=== PATIENT | female | born 1950 | race Caucasian/White ===

== ENCOUNTER → 2017-12-02 | Outpatient (CLI) | payer MEDICARE ==
[~2017-12-02] MED LIST: ALEN70TA3 PO; ASPI-496 PO; CARV-39 PO; DIGO125T PO; VALS80TA3 PO
[2017-12-02 09:53] LABS: ALANINE AMINOTRANSFERASE 28 U/L (12-78); ALBUMIN 3.8 g/dL (3.4-5.0); ANION GAP 7 mmol/L (5-15); CALCIUM 8.8 mg/dL (8.5-10.1); CHLORIDE 110 mmol/L (98-107)
[2017-12-02 09:55] LABS: ALKALINE PHOSPHATASE 37 U/L (45-117); BILIRUBIN,TOTAL 0.6 mg/dL (0.2-1.0); TOTAL PROTEIN 6.8 g/dL (6.4-8.2)
== END | disposition home or self-care (01) ==
LOC: STAR 08:42
PROVIDERS: ATTEND Internal Medicine
DX: Z01.818 Encounter for other preprocedural examination (principal); Z80.0 Family history of malignant neoplasm of digestive organs
CPT/HCPCS: 36415; 80053; 93005

== ENCOUNTER 2017-12-07 08:15 | Day surgery (SDC) | payer MEDICARE ==
[~2017-12-07] VITALS: Ht 170.2 cm; Wt 56.9 kg
[2017-12-07] MEDS ORDERED: LACTATED RINGERS 1,000 ML IV SCH (08:30)
[2017-12-07] MEDS ORDERED: PROPOFOL 10 MG/ML, 20ML ONE ×3 (09:10→09:34)
== END 2017-12-07 11:30 ==
LOC: OUT 08:15
PROVIDERS: ATTEND Internal Medicine
DX: Z09 Encounter for follow-up examination after completed treatment for conditions other than malignant neoplasm (principal); K63.5 Polyp of colon; K64.8 Other hemorrhoids; I50.9 Heart failure, unspecified; I10 Essential (primary) hypertension; Z95.810 Presence of automatic (implantable) cardiac defibrillator; Z80.0 Family history of malignant neoplasm of digestive organs; Z79.82 Long term (current) use of aspirin
CPT/HCPCS: 45385; 88305; A4648; J2704